=== PATIENT | female | born 1955 | race Caucasian/White ===

== ENCOUNTER 2018-09-08 21:55 | Emergency (ER) | payer BC ==
[~2018-09-08] VITALS: Ht 167.6 cm; Wt 75.7 kg
--- NOTE | 2018-09-08 22:30 | NUR ---
pt stated at 1500 she felt something in her throat she tried to used different methods of getting it out but was unsuccessful and gave to the emergency room pt is able to swallow, talk and breath normally without incident but her tonsils are swollen with red dots displayed
--- NOTE | 2018-09-09 00:30 | NUR ---
pt back from radiology condition remains stable
--- NOTE | 2018-09-09 01:05 | NUR ---
pt discharge to home with remains pain free and condition remains stable discharge teaching given pt voiced her understanding well
[2018-09-09 01:30] VITALS: BP 122/76
== END 2018-09-09 01:05 | disposition home or self-care (01) ==
LOC: ER 21:55
DX: T18.128A Food in esophagus causing other injury, initial encounter (principal); J45.909 Unspecified asthma, uncomplicated; X58.XXXA Exposure to other specified factors, initial encounter; Y93.89 Activity, other specified; Y92.89 Other specified places as the place of occurrence of the external cause; Y99.8 Other external cause status
CPT/HCPCS: 70490; A4663